=== PATIENT | male | born 1970 | race Caucasian/White ===

== ENCOUNTER 2023-12-23 08:39 | Day surgery (SDC) | payer BC ==
[~2023-12-23] VITALS: Ht 182.9 cm; Wt 93.8 kg
[2023-12-23] VITALS (13 sets, daily range): BP systolic 120–136; BP diastolic 36–94
[~2023-12-23 08:39] MED LIST: CeFAZolin Sodium 2,000 MG in NS 100 ML IV SCH; Lactated Ringer's 1,000 ML IV SCH
[2023-12-23] MEDS ORDERED: ASPI325 PO (08:59)
[2023-12-23] MEDS ORDERED: KIRKLAND SLEEP AID PO (08:59)
[2023-12-23] MEDS ORDERED: Bupivacaine 0.5% HCl 5 MG/ML 30MLVIAL ONE (09:27)
[2023-12-23] MEDS ORDERED: CeFAZolin Sodium 2,000 MG VIAL ONE (09:34)
--- NOTE | 2023-12-23 09:35 | NUR ---
History, Chart, Medications and Allergies reviewed before start of procedure. Patient confirms NPO status and agrees with scheduled surgery.
[2023-12-23] MEDS ORDERED: Midazolam HCl 1MG / ML 2ML Vial IV SCH (09:50)
[2023-12-23] MEDS ORDERED: Midazolam HCl 1MG / ML 2ML Vial ONE (09:52)
[2023-12-23] MEDS ORDERED: propofoL 20 ML IV ONE (09:56)
[2023-12-23] MEDS ORDERED: FentaNYL Citrate 50 MCG/ML 2 ML Injection ONE ×3 (09:56→12:15)
[2023-12-23] MEDS ORDERED: Sugammadex Sodium 200 MG/2ML SDV (100 MG/ML) ONE (11:15)
[2023-12-23] MEDS ORDERED: Ketorolac Tromethamine 30mg Vial ONE (11:15)
[2023-12-23] MEDS ORDERED: Rocuronium Bromide 10 MG/ML 5ML Injection IV ONE (11:20)
[2023-12-23] MEDS ORDERED: Dexamethasone Sod Phos 10 MG/ML 1ML VIAL ONE (11:20)
[2023-12-23] MEDS ORDERED: SuccINYLCHOLINE Chloride 100 MG/5 ML 5MLSYR ONE (11:20)
[2023-12-23] MEDS ORDERED: Ondansetron HCl 2 MG / ML 2ML Vial ONE (11:20)
[2023-12-23] MEDS ORDERED: HYDROcodone 5-APAP 325 TAB PO PRN (11:45)
[2023-12-23] MEDS ORDERED: FentaNYL Citrate 50 MCG/ML 2 ML Injection IV PRN (12:25)
--- NOTE | 2023-12-23 13:38 | NUR ---
DISCHARGE NOTE PT A&OX4, BREATHING RA, VSS, TOLERATING PO INTAKE, AT BEDSIDE. PT MEDICATED PER ORDERS FOR PAIN, PT STATES PAIN IS TOLERABLE, NO OTHER COMPLAINTS. Patient up to Ambulate independently. Gait steady. Discharge instructions reviewed with patient. Patient verbalizes understanding. Copy given to patient to take home. Dressing to procedure site clean, dry, intact with no visible drainage, swelling, erythema or bruising noted. Discharged via wheelchair to private car for ride home.
== END 2023-12-23 13:30 | disposition home or self-care (01) ==
LOC: ORSCMMR 08:39
PROVIDERS: Surgery
PROC: 0YU54JZ Supplement Right Inguinal Region with Synthetic Substitute, Percutaneous Endoscopic Approach (ICD-10-PCS; principal; 2023-12-23 10:00)
PROC: 8E0W4CZ Robotic Assisted Procedure of Trunk Region, Percutaneous Endoscopic Approach (ICD-10-PCS; principal; 2023-12-23 10:00)
PROC: 0WQF0ZZ Repair Abdominal Wall, Open Approach (ICD-10-PCS; principal; 2023-12-23 10:00)
DX: K40.90 Unilateral inguinal hernia, without obstruction or gangrene, not specified as recurrent (principal); K42.0 Umbilical hernia with obstruction, without gangrene
CPT/HCPCS: A9270; C1781; J0330; J0690; J1100; J1885; J2250; J2405; J2704; J3010; J7120